=== PATIENT | female | born 1990 | race Caucasian/White ===

== ENCOUNTER 2016-12-21 06:49 | Emergency (ER) | payer OTHER ==
[~2016-12-21 06:49] MED LIST: FLEXERIL10 M1 PO; NIX59 ML TOP; NO MEDICATIONS; PRENATAL MULITV1 TAB PO; VOLTAREN50 MG PO
[2016-12-21] MEDS ORDERED: SEROQUEL300 M1 PO (07:01)
[2016-12-21] MEDS ORDERED: LITHIUM PO (07:01)
== END 2016-12-21 07:50 | disposition home or self-care (01) ==
LOC: SED 06:49
DX: S61.212A Laceration without foreign body of right middle finger without damage to nail, initial encounter (principal); F41.9 Anxiety disorder, unspecified; F20.9 Schizophrenia, unspecified; F17.200 Nicotine dependence, unspecified, uncomplicated; Z79.899 Other long term (current) drug therapy; Z88.8 Allergy status to other drugs, medicaments and biological substances; W26.8XXA Contact with other sharp object(s), not elsewhere classified, initial encounter; Y92.009 Unspecified place in unspecified non-institutional (private) residence as the place of occurrence of the external cause
CPT/HCPCS: 99283